=== PATIENT | female | born 1980 | race African-American/Black ===

== ENCOUNTER 2017-07-12 18:51 | Emergency (ER) | payer OTHER ==
[2017-07-12 19:05] VITALS: TEMP 98; BMI 66.1
--- NOTE | 2017-07-12 20:26 | PDOC ---
History of Present Illness - General Chief Complaint: Sore Throat Stated Complaint: COLD SYMTOMS Time Seen by Provider: 07/12/17 20:06 History Source: Patient Exam Limitations: No Limitations - History of Present Illness Initial Comments: 07/12/17 20:19 36 y.o. F with pmh of HTN and HLD presenting with sore throat and cough x 2 days. Patient states she started feeling like she had a sore throat on Wednesday. She began having cough with yellow sputum intermittently and began losing her voice over the next 2 days. Patient states she took nothing for her symptoms. Patient denies fever, chills, chest pain, shortness of breath, wheezing, abdominal pain, dysuria, hematuria, N/V/D/C. PSH: Gastric bypass 2000 All: NKDA SH: denies PCP: Pt is from [place]. PCP is there. Past History - Past Medical History Allergies/Adverse Reactions: Allergies Allergy/AdvReac Type Severity Reaction Status Date / Time No Known Allergies Allergy Verified 07/12/17 19:02 Home Medications: Ambulatory Orders Atorvastatin Ca [Lipitor] 10 mg PO HS 07/12/17 Labetalol HCl [Normodyne -] 200 mg PO BID 07/12/17 HTN: Yes - Surgical History Abdominal Surgery: Yes (GASTRIC BYPASS) - Suicide/Smoking/Psychosocial Hx Smoking History: Never smoked Hx Alcohol Use: No Drug/Substance Use Hx: No Review of Systems - Review of Systems Able to Perform ROS?: Yes Comments:: 07/12/17 20:19 GENERAL/CONSTITUTIONAL: No fever or chills. No weakness. HEAD, EYES, EARS, NOSE AND THROAT: No change in vision. No ear pain or discharge. No sore throat. CARDIOVASCULAR: No chest pain or shortness of breath RESPIRATORY: +cough with sputum, No wheezing, or hemoptysis. GASTROINTESTINAL: No nausea, vomiting, diarrhea or constipation. GENITOURINARY: No dysuria, frequency, or change in urination. MUSCULOSKELETAL: No joint or muscle swelling or pain. No neck or back pain. SKIN: No rash NEUROLOGIC: No headache, vertigo, loss of consciousness, or change in strength/ sensation. ENDOCRINE: No increased thirst. No abnormal weight change HEMATOLOGIC/LYMPHATIC: No anemia, easy bleeding, or history of blood clots. ALLERGIC/IMMUNOLOGIC: No hives or skin allergy. *Physical Exam - Vital Signs Last Vital Signs Temp Pulse Resp BP Pulse Ox 98.0 F 99 H 16 203/113 97 07/12/17 18:58 07/12/17 18:58 07/12/17 18:58 07/12/17 18:58 07/12/17 18:58 07/12/17 20:20 - Physical Exam Comments: 07/12/17 20:19 GENERAL: Awake, alert, and fully oriented, in no acute distress. +Obese HEAD: No signs of trauma, normocephalic, atraumatic EYES: PERRLA, EOMI, sclera anicteric, conjunctiva clear ENT: Auricles normal inspection, hearing grossly normal, nares patent, oropharynx clear without exudates. Moist mucosa. No pharyngeal erythema. NECK: Normal ROM, supple, no lymphadenopathy, JVD, or masses LUNGS: No distress, speaks full sentences, clear to auscultation bilaterally HEART: Tachycardic, Regular rhythm, normal S1 and S2, no murmurs, rubs or gallops, peripheral pulses normal and equal bilaterally. ABDOMEN: Soft, nontender, normoactive bowel sounds. No guarding, no rebound. No masses EXTREMITIES: Normal inspection, Normal range of motion, no edema. No clubbing or cyanosis. NEUROLOGICAL: Cranial nerves II through XII grossly intact. Normal speech, normal gait, no focal sensorimotor deficits SKIN: Warm, Dry, normal turgor, no rashes or lesions noted. ED Treatment Course - LABORATORY CBC & Chemistry Diagram: 07/12/17 20:25 07/12/17 20:25 Medical Decision Making - Medical Decision Making 07/12/17 20:28 36 y.o. F with pmh of HTN and HLD presenting with sore throat and cough x 2 days. Plan: cbc, cmp, rapid strep, influenze swab, sx control 07/12/17 22:37 Labs unremarkable Swabs unremarkable CXR- no infiltrates apparent on xray Patient has laryngitis and is stable for d/c *DC/Admit/Observation/Transfer Diagnosis at time of Disposition: Viral URI with cough, Laryngitis - Discharge Dispostion Disposition: HOME Condition at time of disposition: Stable - Patient Instructions Printed Discharge Instructions: DI for Laryngitis Additional Instructions: Follow up with your primary care provider within 1 week. Drink plenty of fluids. Take motrin 600 mg as needed. If you have worsening symptoms, chest pain, or shortness of breath come back to the hospital immediately.
--- NOTE | 2017-07-12 20:27 | PDOC ---
Attending Attestation - Resident Resident Name: Rafal Farr - ED Attending Attestation I have performed the following: I have examined & evaluated the patient, The case was reviewed & discussed with the resident, I agree w/resident's findings & plan, Exceptions are as noted - HPI HPI: 07/13/17 01:12 36 yo female has c/o laryngitis,cough morbidly obese female in no acute distress, no dyspnea oral pharynx there are no exudates,uvula is midline ,no edema,no peritonsillar swelling neck supple lungs cta b/l cvr [id number] abd protuberant ext full range of motrin neuro axox3,no gross focal deficits 07/13/17 02:16 - Physicial Exam PE: 07/13/17 02:16 please see above - Medical Decision Making 07/13/17 01:15 repeat BP wsa normal, pt was not in any resp distress,no dyspnea,speaking clearly in full sentences 07/13/17 02:15 IMP URI ,laryngitis discharged home to follow up with her PCP
[2017-07-12] MEDS ORDERED: LABETALOL HCL 200 MG TABLET (FP) PO ONE (20:29)
[2017-07-12] MEDS ORDERED: LABETALOL HCL 100 MG TABLET (FP) ONE (20:42)
[2017-07-12 21:11] LABS: BASOPHIL 0.4 % (0-2.0); EOSINOPHIL 0.4 % (0-4.5); MCH 28.1 pg (25.7-33.7); MCHC 32.7 g/dl (32.0-36.0); MEAN CELL VOLUME 85.9 fl (80-96); MEAN PLT VOLUME 8.2 fl (7.5-11.1); NEUTROPHILS 76.9 % (42.8-82.8); PLATELET COUNT 300 K/MM3 (134-434); RDW 15.6 % (11.6-15.6)
[2017-07-12 21:37] LABS: ALBUMIN 3.4 g/dl (3.4-5.0); ALK PHOS 68 U/L (45-117); ANION GAP 8 (8-16); BILIRUBIN,TOTAL 0.4 mg/dL (0.2-1.0); CALCIUM 8.3 mg/dL (8.5-10.1); CO2 24 mmol/L (21-32); CREATININE 0.9 mg/dL (0.55-1.02); GLUCOSE,RANDOM 87 mg/dL (74-106); SGOT/AST 12 U/L (15-37); SGPT/ALT 20 U/L (12-78); TOT PROT 6.9 g/dl (6.4-8.2)
[2017-07-12 22:11] VITALS: BP 154/84; PULSE 91
[2017-07-12] MEDS ORDERED: BENZOCAINE/MENTH/CETYLPYRD CL 1 EACH LOZENGE MM ONE (22:41)
== END 2017-07-12 23:01 | disposition home or self-care (01) ==
LOC: JER 18:51
DX: J04.0 Acute laryngitis (principal); J06.9 Acute upper respiratory infection, unspecified; B97.89 Other viral agents as the cause of diseases classified elsewhere; I10 Essential (primary) hypertension; E78.00 Pure hypercholesterolemia, unspecified; Z98.84 Bariatric surgery status
CPT/HCPCS: 36415; 71020-TC; 80053; 84703; 85025; 87070; 87430; 87804; 99283-25